=== PATIENT | female | born 1960 | race Caucasian/White ===

== ENCOUNTER 2020-08-27 12:22 | Emergency (ER) | payer MEDICAID, OTHER ==
[~2020-08-27] VITALS: Ht 177.8 cm; Wt 91.4 kg
[2020-08-27 12:28] VITALS: BP 130/76
--- NOTE | 2020-08-27 16:55 | NUR ---
PT IN GOWN IN [facility] WITH PROVIDER AT . PT EDUCATED ON ER PROCESS AND POC AND VERBALIZES UNDERSTANDING. CALL LIGHT IS WITHIN REACH; AWAITING ORDERS AT THIS TIME.
== END 2020-08-27 18:29 | disposition home or self-care (01) ==
LOC: ED 17:34
DX: M54.32 Sciatica, left side (principal)
CPT/HCPCS: 99283; 99284